=== PATIENT | female | born 1985 | race Caucasian/White ===

== ENCOUNTER 2022-02-24 18:52 | Emergency (ER) | payer OTHER ==
[~2022-02-24] VITALS: Ht 160 cm; Wt 81.6 kg
[2022-02-24 19:36] VITALS: BP 142/94
--- NOTE | 2022-02-24 21:11 | NUR ---
Patient being evaluated by physician
--- NOTE | 2022-02-24 21:15 | NUR ---
Female Vehicle And Equipment Cleaner accompanied female patient for Pelvic Exam.
[2022-02-24] MEDS ORDERED: DOXY-487 PO (21:18)
== END 2022-02-24 21:21 | disposition home or self-care (01) ==
LOC: MED 18:52
DX: L73.9 Follicular disorder, unspecified (principal); Z79.899 Other long term (current) drug therapy
CPT/HCPCS: 99283

== ENCOUNTER 2023-08-04 22:09 | Emergency (ER) | payer OTHER ==
[~2023-08-04] VITALS: Ht 160 cm; Wt 72.6 kg
[~2023-08-04 22:09] MED LIST: DOXY-487 PO
[2023-08-04 22:46] VITALS: BP 155/102; PULSE 77; RESP 18; TEMP 97.2; O2SAT 99
[2023-08-05 01:30] VITALS: TEMP 97.2
[2023-08-05 03:22] VITALS: O2SAT 98
[2023-08-05 03:31] LABS: AMPHETAMINE, URINE POSITIVE ng/ml (NEG <=1000); BARBITURATE, URINE NEGATIVE ng/ml (NEG <=200); BENZODIAZEPINE, URINE NEGATIVE ng/mL (NEG <=200); CANNABINOID, URINE NEGATIVE ng/mL (NEG <=50); COCAINE, URINE NEGATIVE ng/mL (NEG <=300); OPIATE, URINE NEGATIVE ng/mL (NEG <=2000); PHENCYCLIDINE SCREEN,URINE NEGATIVE ng/mL (NEG <=25)
[2023-08-05] MEDS ORDERED: ACET-10509 PO (04:12)
[2023-08-05 04:21] VITALS: BP 150/87; PULSE 80; RESP 16; O2SAT 98
[2023-08-05] MEDS: ACETAMINOPHEN EXTRA STRENGTH 500 MG TAB PO ONE (04:24)
== END 2023-08-05 04:30 | disposition home or self-care (01) ==
LOC: MED 22:09
DX: G43.909 Migraine, unspecified, not intractable, without status migrainosus (principal); Z79.899 Other long term (current) drug therapy
CPT/HCPCS: 80305; 81025; 82948; 99285